=== PATIENT | female | born 1970 | race Caucasian/White ===

== ENCOUNTER 2018-08-26 08:16 | Day surgery (SDC) | payer OTHER ==
[2018-08-26] MEDS ORDERED: LIDOCAINE 4% SOLUTION 50 ML BTL ×2 (09:31→10:05)
[2018-08-26] MEDS ORDERED: FENTAnyl 50 MCG/ML VIAL (10:48)
[2018-08-26] MEDS ORDERED: MIDAZOLAM 1 MG/ML 2 ML INJ ×2 (10:48)
== END 2018-08-26 12:12 | disposition home or self-care (01) ==
LOC: GIL 08:16
DX: R19.5 Other fecal abnormalities (principal); K29.50 Unspecified chronic gastritis without bleeding; K22.70 Barrett's esophagus without dysplasia; I10 Essential (primary) hypertension; E11.9 Type 2 diabetes mellitus without complications
CPT/HCPCS: 43239; 82962; 84703; 88305; 88312; 88313